=== PATIENT | male | born 1960 | race Caucasian/White ===

== ENCOUNTER 2017-11-29 17:26 | Emergency (ER) | payer OTHER ==
[~2017-11-29] VITALS: Ht 172.7 cm; Wt 93.4 kg
--- NOTE | 2017-11-29 17:55 | PHYS DOC ---
Past History Past Medical History: Diabetes, GERD Past Surgical History: No Surgical History Alcohol Use: None Drug Use: None Adult General Chief Complaint Chief Complaint: GI PROBLEM HPI HPI 57-year-old male presents with concern for food bolus in his esophagus. The patient normally is on omeprazole but he ran out and did not get it refilled for about one week. When he has not taken it in the past, he has had swelling of his esophagus has had fluid boluses stuck in the past. Yesterday, the patient was eating hamburger and began to have the feeling that maybe something got stuck. Today the patient was eating shrimp and he felt fairly certain that it was stuck. He drank some more diffuse and forced himself to vomit. He was able to dislodge and vomited out the shrimp that he ate. He continued to work rest of the day, but came here because he still has pain in his throat and feels like there may still be something stuck. He has had the initiation of glucagon and endoscopy to remove bolus in the past. He is still able to swallow liquids but has not tried any additional solids. Patient denies any other illness or concerns. Review of Systems Review of Systems Constitutional: Denies fever or chills [] Eyes: Denies change in visual acuity, redness, or eye pain [] HENT: Denies nasal congestion or sore throat [] Respiratory: Denies cough or shortness of breath [] Cardiovascular: No additional information not addressed in HPI [] GI: Possible food bolus in the esophagus[] : Denies dysuria or hematuria [] Musculoskeletal: Denies back pain or joint pain [] Integument: Denies rash or skin lesions [] Neurologic: Denies headache, focal weakness or sensory changes [] Endocrine: Denies polyuria or polydipsia [] All other systems were reviewed and found to be within normal limits, except as documented in this note. Current Medications Current Medications Current Medications Medications (Trade) Dose Ordered Sig/Krysta Start Time Stop Time Status Last Admin Dose Admin Glucagon (Glucagen Kit) 1 mg 1X ONCE 11/29/17 18:15 11/29/17 18:16 Allergies Allergies Allergies Coded Allergies Type Severity Reaction Last Updated Verified Sulfa (Sulfonamide Antibiotics) Allergy Severe HALLICUINATIONS 11/29/17 Yes Physical Exam Physical Exam Constitutional: Well developed, well nourished, no acute distress, non-toxic appearance. [] HENT: Normocephalic, atraumatic, bilateral external ears normal, oropharynx moist, no oral exudates, nose normal. [] Eyes: PERRLA, EOMI, conjunctiva normal, no discharge. [] Neck: Normal range of motion, no tenderness, supple, no stridor. [] Cardiovascular:Heart rate regular rhythm, no murmur [] Lungs & Thorax: Bilateral breath sounds clear to auscultation [] Abdomen: Bowel sounds normal, soft, no tenderness, no masses, no pulsatile masses. [] Skin: Warm, dry, no erythema, no rash. [] Back: No tenderness, no CVA tenderness. [] Extremities: No tenderness, no cyanosis, no clubbing, ROM intact, no edema. [] Neurologic: Alert and oriented X 3, normal motor function, normal sensory function, no focal deficits noted. [] Psychologic: Affect normal, judgement normal, mood normal. [] Current Patient Data Vital Signs Vital Signs Date Time Temp Pulse Resp B/P (MAP) Pulse Ox O2 Delivery O2 Flow Rate FiO2 11/29/17 17:26 98.6 65 20 97 Room Air Lab Results Laboratory Tests Test 11/29/17 17:45 White Blood Count 7.5 x10^3/uL Red Blood Count 4.52 x10^6/uL Hemoglobin 13.6 g/dL Hematocrit 38.6 % Mean Corpuscular Volume 85 fL Mean Corpuscular Hemoglobin 30 pg Mean Corpuscular Hemoglobin Concent 35 g/dL Red Cell Distribution Width 13.4 % Platelet Count 302 x10^3/uL Neutrophils (%) (Auto) 56 % Lymphocytes (%) (Auto) 34 % Monocytes (%) (Auto) 8 % Eosinophils (%) (Auto) 2 % Basophils (%) (Auto) 1 % Neutrophils # (Auto) 4.2 x10^3uL Lymphocytes # (Auto) 2.5 x10^3/uL Monocytes # (Auto) 0.6 x10^3/uL Eosinophils # (Auto) 0.1 x10^3/uL Basophils # (Auto) 0.1 x10^3/uL Sodium Level 139 mmol/L Potassium Level 3.8 mmol/L Chloride Level 101 mmol/L Carbon Dioxide Level 29 mmol/L Anion Gap 9 Blood Urea Nitrogen 27 mg/dL Creatinine 1.2 mg/dL Estimated GFR (Cockcroft-Gault) 62.4 Glucose Level 129 mg/dL Calcium Level 9.1 mg/dL Current Medications Medications (Trade) Dose Ordered Sig/Krysta Route PRN Reason Start Time Stop Time Status Last Admin Dose Admin Glucagon (Glucagen Kit) 1 mg 1X ONCE IV 11/29/17 18:15 11/29/17 18:17 DC 11/29/17 18:42 Midazolam HCl (Versed) 1 mg 1X ONCE IV 11/29/17 19:00 11/29/17 19:01 DC 11/29/17 18:42 EKG EKG Not performed[] Radiology/Procedures Radiology/[place] [address] IMAGING REPORT Signed PATIENT: CATINA FORD ACCOUNT: [id number] : 1960 LOCATION: ER AGE: 57 SEX: M EXAM STATUS: REG ER ORD. PHYSICIAN: ALONDRA HOUGH DO REASON: Suspected foreign body in esophagus PROCEDURE: CHEST PA & LATERAL Chest PA and lateral: Reason for examination: Choking episode. Acid reflux. Suspected foreign body in esophagus. The heart size is normal. Mediastinum is unremarkable. Lung green are clear except for small calcified granuloma in the periphery of the mid left lung field. No acute bony abnormalities are seen. Old rib fractures are seen on the right. There is no radiopaque foreign body identified. Impression: No acute cardiopulmonary disease. Soft tissues neck 2 views: The vertebral bodies of the cervical spine are normally aligned anteriorly and posteriorly. Prevertebral soft tissues are normal. The epiglottis has a normal appearance. The airways patent. No radiopaque foreign bodies are identified. IMPRESSION: No acute abnormality in the soft tissues of neck. No radiopaque foreign body identified. KUB: There is no gross organomegaly. Psoas muscles are symmetric. Bowel gas pattern is nonspecific with no evidence of obstruction. No radiopaque foreign bodies identified. There are small phleboliths in the pelvis. No acute bony abnormalities are seen. IMPRESSION: Nonobstructive bowel gas pattern. No radiopaque foreign bodies identified. Electronically signed by: Violet Whittaker MD (11/29/2017 6:37 PM) [facility] DICTATED AND SIGNED BY: VIOLET WHITTAKER MD DATE: 11/29/171833 CC: ALONDRA HOUGH DO; REY KRUEGER MD; KORIN DODSON MD ~ [address] [address] IMAGING REPORT Signed PATIENT: CATINA FORD ACCOUNT: [id number] : 1960 LOCATION: ER AGE: 57 SEX: M EXAM STATUS: REG ER ORD. PHYSICIAN: ALONDRA HOUGH DO REASON: Suspected foreign body in esophagus PROCEDURE: KUB Chest PA and lateral: Reason for examination: Choking episode. Acid reflux. Suspected foreign body in esophagus. The heart size is normal. Mediastinum is unremarkable. Lung green are clear except for small calcified granuloma in the periphery of the mid left lung field. No acute bony abnormalities are seen. Old rib fractures are seen on the right. There is no radiopaque foreign body identified. Impression: No acute cardiopulmonary disease. Soft tissues neck 2 views: The vertebral bodies of the cervical spine are normally aligned anteriorly and posteriorly. Prevertebral soft tissues are normal. The epiglottis has a normal appearance. The airways patent. No radiopaque foreign bodies are identified. IMPRESSION: No acute abnormality in the soft tissues of neck. No radiopaque foreign body identified. KUB: There is no gross organomegaly. Psoas muscles are symmetric. Bowel gas pattern is nonspecific with no evidence of obstruction. No radiopaque foreign bodies identified. There are small phleboliths in the pelvis. No acute bony abnormalities are seen. IMPRESSION: Nonobstructive bowel gas pattern. No radiopaque foreign bodies identified. Electronically signed by: Violet Whittaker MD (11/29/2017 6:37 PM) [facility] DICTATED AND SIGNED BY: VIOLET WHITTAKER MD DATE: 11/29/171833 CC: ALONDRA HOUGH DO; REY KRUEGER MD; KORIN DODSON MD ~ [address] [address] IMAGING REPORT Signed PATIENT: CATINA FORD ACCOUNT: [id number] : 1960 LOCATION: ER AGE: 57 SEX: M EXAM STATUS: REG ER ORD. PHYSICIAN: ALONDRA HOUGH DO REASON: Suspected foreign body in esophagus PROCEDURE: NECK SOFT TISSUE Chest PA and lateral: Reason for examination: Choking episode. Acid reflux. Suspected foreign body in esophagus. The heart size is normal. Mediastinum is unremarkable. Lung green are clear except for small calcified granuloma in the periphery of the mid left lung field. No acute bony abnormalities are seen. Old rib fractures are seen on the right. There is no radiopaque foreign body identified. Impression: No acute cardiopulmonary disease. Soft tissues neck 2 views: The vertebral bodies of the cervical spine are normally aligned anteriorly and posteriorly. Prevertebral soft tissues are normal. The epiglottis has a normal appearance. The airways patent. No radiopaque foreign bodies are identified. IMPRESSION: No acute abnormality in the soft tissues of neck. No radiopaque foreign body identified. KUB: There is no gross organomegaly. Psoas muscles are symmetric. Bowel gas pattern is nonspecific with no evidence of obstruction. No radiopaque foreign bodies identified. There are small phleboliths in the pelvis. No acute bony abnormalities are seen. IMPRESSION: Nonobstructive bowel gas pattern. No radiopaque foreign bodies identified. Electronically signed by: Violet Whittaker MD (11/29/2017 6:37 PM) [facility] DICTATED AND SIGNED BY: VIOLET WHITTAKER MD DATE: 11/29/17 1834 CC: ALONDRA HOUGH DO; REY KRUEGER MD; KORIN DODSON MD ~ [] Course & Med Decision Making Course & Med Decision Making Pertinent Labs and Imaging studies reviewed. (See chart for details) The patient's workup is pending. I am signing out the patient to Dr. Krueger Addendum at [address] Rey Krueger: I took over care of the patient has reported by Dr. Hough at 1800. Patient's x-rays were negative for acute pathology. The patient was administered glucagon and Versed. After administration of medication, the patient is able to tolerate oral fluids at this time. Patient additionally was given GI cocktail to help with throat irritation. The patient is a candidate for outpatient follow-up with gastroenterology and patient referred to Dr. Perlata. Advised to follow-up in the next 3 days for reevaluation. Advised return emergency Department for any worsening symptoms. Patient voiced understanding and agreement with treatment plan.[] Dragon Disclaimer Dragon Disclaimer This electronic medical record was generated, in whole or in part, using a voice recognition dictation system. Departure Departure: Impression: Primary Impression: Esophageal abnormality Disposition: HOME, SELF-CARE Condition: IMPROVED Referrals: KORIN DODSON MD (PCP) LILI PERALTA MD Patient Instructions: Swallowed Foreign Body, Adult Additional Instructions: He will need to follow-up with a final cigar and box examiner in the next 3 days for reevaluation. Continue with liquid diet and soft diet at this time until your symptoms have completely resolved. Carbonated beverages may be of benefit to help relieve any remaining partial blockage. As part of your treatment you may need to have endoscopy to determine if there is any remaining blockage in your esophagus. Return to the emergency department for any worsening symptoms. ALONDRA HOUGH DO Nov 29, 2017 17:55 REY KRUEGER MD Nov 29, 2017 19:22
[2017-11-29 18:05] LABS: BASO # 0.1 x10^3/uL (0.0-0.2); BASO % 1 % (0-3); EOS # 0.1 x10^3/uL (0.0-0.7); EOS % 2 % (0-3); HEMATOCRIT 38.6 % (39.0-53.0); HEMOGLOBIN 13.6 g/dL (13.0-17.5); LYMPH # 2.5 x10^3/uL (1.0-4.8); LYMPH % 34 % (24-48); MEAN CORPUSCULAR HEMOGLOBIN 30 pg (25-35); MEAN CORPUSCULAR HGB CONC 35 g/dL (31-37); MEAN CORPUSCULAR VOLUME 85 fL (79-100); MONO # 0.6 x10^3/uL (0.0-1.1); MONO % 8 % (0-9); NEUT # 4.2 x10^3uL (1.8-7.7); NEUT % 56 % (31-73); PLATELET COUNT 302 x10^3/uL (140-400); RED BLOOD COUNT 4.52 x10^6/uL (4.30-5.70); RED CELL DISTRIBUTION WIDTH 13.4 % (11.5-14.5); WHITE BLOOD COUNT 7.5 x10^3/uL (4.0-11.0)
[2017-11-29 18:10] LABS: CALCIUM 9.1 mg/dL (8.5-10.1); CREATININE 1.2 mg/dL (0.7-1.3); GFR 62.4; POTASSIUM 3.8 mmol/L (3.5-5.1)
--- NOTE | 2017-11-29 18:41 | RAD ---
Chest PA and lateral: Reason for examination: Choking episode. Acid reflux. Suspected foreign body in esophagus. The heart size is normal. Mediastinum is unremarkable. Lung green are clear except for small calcified granuloma in the periphery of the mid left lung field. No acute bony abnormalities are seen. Old rib fractures are seen on the right. There is no radiopaque foreign body identified. Impression: No acute cardiopulmonary disease. Soft tissues neck 2 views: The vertebral bodies of the cervical spine are normally aligned anteriorly and posteriorly. Prevertebral soft tissues are normal. The epiglottis has a normal appearance. The airways patent. No radiopaque foreign bodies are identified. IMPRESSION: No acute abnormality in the soft tissues of neck. No radiopaque foreign body identified. KUB: There is no gross organomegaly. Psoas muscles are symmetric. Bowel gas pattern is nonspecific with no evidence of obstruction. No radiopaque foreign bodies identified. There are small phleboliths in the pelvis. No acute bony abnormalities are seen. IMPRESSION: Nonobstructive bowel gas pattern. No radiopaque foreign bodies identified. Electronically signed by: Violet Kauffman MD (11/29/2017 6:37 PM) [facility]
[2017-11-29] MEDS: MIDAZOLAM HCL PF 5 MG/5 ML VIAL. IV ONE (18:42)
[2017-11-29] MEDS: GLUCAGON,HUMAN RECOMBINANT 1 MG KIT. IV ONE (18:42)
[2017-11-29 19:20] VITALS: BP 148/73
[2017-11-29] MEDS: LIDO:MAALOX 1:1 20 ML SINGLE DOSE. PO ONE (19:28)
== END 2017-11-29 19:25 | disposition home or self-care (01) ==
LOC: ER 17:26
DX: K22.8 Other specified diseases of esophagus (principal); K21.9 Gastro-esophageal reflux disease without esophagitis; E11.9 Type 2 diabetes mellitus without complications; Z88.2 Allergy status to sulfonamides
CPT/HCPCS: 36415; 70360; 71046; 74018; 80048; 85025; 96374; 96375; 99285; J1610; J2250

== ENCOUNTER 2017-12-19 05:24 | Emergency (ER) | payer OTHER ==
[~2017-12-19] VITALS: Ht 172.7 cm; Wt 93.5 kg
--- NOTE | 2017-12-19 05:39 | ED.ADGEN ---
Past History Past Medical History: Diabetes, GERD Past Surgical History: No Surgical History Alcohol Use: None Drug Use: None Adult General Chief Complaint Chief Complaint ".. I having one of my migraines.. .. when they get bad... I just get a shot of toradol .. and I get better... I had all kinds of CT.. and labs.. they have never found anything..." [facility] HPI Patient is a 57 year old male who presents with complaints of head ache. He says this feels like his typical migraine. Patient does have photophobia. No visual field deficits. Patient denies any trauma. Patient denies any travel. Patient denies any specific ill contacts. Patient states she's had multiple workups for his migraines and they have always been negative for specific pathology. Patient's iron carrier are equal. DTRs +2 patella and brachial. Distal vibratory 128 intact. Air-conduction more than bone conduction and no lateralization. Patient requesting clinical development of his migraine. Toradol shot. Patient states she's had a headache for 2 days. But on driving to work today he decided not to work and presented himself to the emergency department. Patient is examined for problems. Patient denies any history of fevers, cancer or immunosuppression. Patient normally follows with Dr. Aguillon. Review of Systems Review of Systems Constitutional: Denies fever or chills [] Eyes: Denies change in visual acuity, redness, or eye pain [] HENT: Denies nasal congestion or sore throat [] Respiratory: Denies cough or shortness of breath [] Cardiovascular: No additional information not addressed in HPI [] GI: Denies abdominal pain, nausea, vomiting, bloody stools or diarrhea [] : Denies dysuria or hematuria [] Musculoskeletal: Denies back pain or joint pain [] Integument: Denies rash or skin lesions [] Neurologic: Complains of headache. Denies focal weakness or sensory changes [] Endocrine: Denies polyuria or polydipsia [] All other systems were reviewed and found to be within normal limits, except as documented in this note. Family History Family History Non-contributory Current Medications Current Medications Current Medications Medications (Trade) Dose Ordered Sig/Krysta Start Time Stop Time Status Last Admin Dose Admin Ketorolac Tromethamine (Toradol) 60 mg STK-MED ONCE 12/19/17 05:42 12/19/17 05:43 DC Ondansetron HCl (Zofran Odt) 8 mg 1X ONCE 12/19/17 06:00 12/19/17 06:01 DC 12/19/17 05:48 8 MG Allergies Allergies Allergies Coded Allergies Type Severity Reaction Last Updated Verified Sulfa (Sulfonamide Antibiotics) Allergy Severe HALLICUINATIONS 11/29/17 Yes Physical Exam Physical Exam Constitutional: Well developed, well nourished, mild distress, non-toxic appearance. [] HENT: Normocephalic, atraumatic, bilateral external ears normal, oropharynx moist, no oral exudates, nose normal. [] Eyes: PERRLA, EOMI, conjunctiva normal, no discharge. [] Photophobia Neck: Normal range of motion, no tenderness, supple, no stridor. [] Cardiovascular:Heart rate regular rhythm, no murmur [] Lungs & Thorax: Bilateral breath sounds clear to auscultation [] Abdomen: Bowel sounds normal, soft, no tenderness, no masses, no pulsatile masses. [] Skin: Warm, dry, no erythema, no rash. [] Back: No tenderness, no CVA tenderness. [] Extremities: No tenderness, no cyanosis, no clubbing, ROM intact, no edema. [] Neurologic: Alert and oriented X 3, normal motor function, normal sensory function, no focal deficits noted. []Exam as per history of present illness Psychologic: Affect normal, judgement normal, mood normal. [] EKG EKG [] Radiology/Procedures Radiology/Procedures Declines CT[] Course & Med Decision Making Course & Med Decision Making Pertinent Labs and Imaging studies reviewed. (See chart for details). Pt. declines Spinal tap or labs. Patient take home meds. Directed for his migraines. Patient follow-up primary care review his blood pressure. Patient return if any concerns. [] Final Impression Final Impression 1. Headache- Migraine[] Dragon Disclaimer Dragon Disclaimer This electronic medical record was generated, in whole or in part, using a voice recognition dictation system. DANYA ACUÑA MD Dec 19, 2017 05:39
[2017-12-19] MEDS ORDERED: KETOROLAC 60 MG/2 ML VIAL. IM ONE ×2 (05:42→06:00)
[2017-12-19 05:50] VITALS: BP 150/78
[2017-12-19] MEDS ORDERED: ONDANSETRON ODT 4 MG TAB.RAPDIS PO ONE (06:00)
== END 2017-12-19 06:00 | disposition home or self-care (01) ==
LOC: ER 05:24
DX: G43.909 Migraine, unspecified, not intractable, without status migrainosus (principal); K21.9 Gastro-esophageal reflux disease without esophagitis; E11.9 Type 2 diabetes mellitus without complications; Z88.2 Allergy status to sulfonamides
CPT/HCPCS: 96372; 99283; J1885; Q0162

== ENCOUNTER 2018-03-14 06:16 | Emergency (ER) | payer OTHER ==
[~2018-03-14] VITALS: Ht 172.7 cm; Wt 96.0 kg
[2018-03-14 06:28] VITALS: BP 173/88
[2018-03-14] MEDS ORDERED: ALBUTEROL SULFATE 2.5 MG/3 ML NEBU. ONE (06:42)
--- NOTE | 2018-03-14 06:48 | PHYS DOC ---
Past History Past Medical History: Asthma, High Cholesterol, Hypertension Past Surgical History: No Surgical History, Other Alcohol Use: None Drug Use: None Adult General Chief Complaint Chief Complaint: SHORTNESS OF BREATH HPI HPI 57-year-old male presents with shortness of breath and migraine headache. The patient has known asthma. He woke up this morning and felt like he was more short of breath. He thought he might be wheezing. He took his MDI inhaler but this did not seem to improve his breathing as he usually does. The patient typically has asthma exacerbations with weather changes and it is worse this time of year as he has seasonal allergies. He denies chest pain or diaphoresis. He has not had a cough or fever. 3 weeks ago he had an exacerbation and had a round of prednisone. This improved his condition substantially and he has been feeling well until this morning. Patient further complains of a migraine headache. He states that they sometimes occur with his asthma exacerbations. He is photophobic. The headache feels similar to his previous. He denies any trauma or falls. Review of Systems Review of Systems Constitutional: Denies fever or chills [] Eyes: Denies change in visual acuity, redness, or eye pain [] HENT: Denies nasal congestion or sore throat [] Respiratory: shortness of breath [] Cardiovascular: No additional information not addressed in HPI [] GI: Denies abdominal pain, nausea, vomiting, bloody stools or diarrhea [] : Denies dysuria or hematuria [] Musculoskeletal: Denies back pain or joint pain [] Integument: Denies rash or skin lesions [] Neurologic: Headache. No focal weakness or sensory changes [] Endocrine: Denies polyuria or polydipsia [] All other systems were reviewed and found to be within normal limits, except as documented in this note. Current Medications Current Medications Current Medications Medications (Trade) Dose Ordered Sig/Krysta Start Time Stop Time Status Last Admin Dose Admin Albuterol Sulfate (Ventolin) 2.5 mg STK-MED ONCE 03/14/18 06:42 03/14/18 06:43 DC Allergies Allergies Allergies Coded Allergies Type Severity Reaction Last Updated Verified Sulfa (Sulfonamide Antibiotics) Allergy Severe HALLICUINATIONS 11/29/17 Yes Physical Exam Physical Exam Constitutional: Well developed, well nourished, no acute distress, non-toxic appearance. [] HENT: Normocephalic, atraumatic, bilateral external ears normal, oropharynx moist, no oral exudates, nose normal. [] Eyes: PERRLA, EOMI, conjunctiva normal, no discharge. Photophobia[] Neck: Normal range of motion, no tenderness, supple, no stridor. [] Cardiovascular:Heart rate regular rhythm, no murmur [] Lungs & Thorax: Bilateral breath sounds mildly decreased with bilateral wheezing at the bases[] Abdomen: Bowel sounds normal, soft, no tenderness, no masses, no pulsatile masses. [] Skin: Warm, dry, no erythema, no rash. [] Back: No tenderness, no CVA tenderness. [] Extremities: No tenderness, no cyanosis, no clubbing, ROM intact, no edema. [] Neurologic: Alert and oriented X 3, normal motor function, normal sensory function, no focal deficits noted. [] Psychologic: Affect normal, judgement normal, mood normal. [] Current Patient Data Vital Signs Vital Signs Date Time Temp Pulse Resp B/P (MAP) Pulse Ox O2 Delivery O2 Flow Rate FiO2 03/14/18 06:28 Room Air 03/14/18 06:28 98.2 73 22 97 EKG EKG [] Radiology/Procedures Radiology/Procedures [] Course & Med Decision Making Course & Med Decision Making Pertinent Labs and Imaging studies reviewed. (See chart for details) The patient was given 2 albuterol nebulizers and a DuoNeb. He had improved breath sounds, but bilateral wheezing remained. I gave him 125 of Solu-Medrol and will discharge him with 3 days of prednisone 50 mg. For his headache, patient was given 1 L normal saline, 30 mg of Toradol, 25 mg Benadryl, 10 mg Reglan. He had significant improvement in his headache. He feels as though he can go home. He is stable for discharge at this time. [] Dragon Disclaimer Dragon Disclaimer This electronic medical record was generated, in whole or in part, using a voice recognition dictation system. Departure Departure: Referrals: KORIN DODSON MD (PCP) Scripts Prednisone (PREDNISONE) 50 Mg Tablet 1 TAB PO DAILY for 3 Days, #3 TAB Prov: ALONDRA HOUGH DO 03/14/18 ALONDRA HOUGH DO Mar 14, 2018 06:48
[2018-03-14] MEDS ORDERED: IV NORMAL SALINE 1,000ML 1,000 ML IV ONE (07:00)
[2018-03-14] MEDS ORDERED: METOCLOPRAMIDE HCL 10 MG/2 ML VIAL. IV ONE (07:00)
[2018-03-14] MEDS ORDERED: KETOROLAC 30 MG/ML VIAL. IV ONE (07:00)
[2018-03-14] MEDS ORDERED: diphenhydrAMINE 50 MG/ML VIAL IVP ONE (07:00)
[2018-03-14] MEDS ORDERED: IPRATRPIUM/ALBUTEROL 0.5/2.5MG 3 ML NEBU. ONE (07:12)
[2018-03-14] MEDS ORDERED: ALBUTEROL SULFATE 2.5 MG/3 ML NEBU. NEB ONE (07:15)
[2018-03-14] MEDS ORDERED: IPRATRPIUM/ALBUTEROL 0.5/2.5MG 3 ML NEBU. NEB ONE (07:15)
[2018-03-14 07:19] LABS: BASO # 0.1 x10^3/uL (0.0-0.2); BASO % 1 % (0-3); EOS # 0.2 x10^3/uL (0.0-0.7); EOS % 2 % (0-3); HEMATOCRIT 38.3 % (39.0-53.0); HEMOGLOBIN 13.3 g/dL (13.0-17.5); LYMPH # 2.5 x10^3/uL (1.0-4.8); LYMPH % 35 % (24-48); MEAN CORPUSCULAR HEMOGLOBIN 30 pg (25-35); MEAN CORPUSCULAR HGB CONC 35 g/dL (31-37); MEAN CORPUSCULAR VOLUME 87 fL (79-100); MONO # 0.7 x10^3/uL (0.0-1.1); MONO % 10 % (0-9); NEUT # 3.7 x10^3uL (1.8-7.7); NEUT % 52 % (31-73); PLATELET COUNT 257 x10^3/uL (140-400); RED BLOOD COUNT 4.41 x10^6/uL (4.30-5.70); RED CELL DISTRIBUTION WIDTH 14.1 % (11.5-14.5); WHITE BLOOD COUNT 7.1 x10^3/uL (4.0-11.0)
[2018-03-14] MEDS ORDERED: methylPREDNISolone SOD SUCC PF 125 MG/2 ML VIAL. IV ONE (07:30)
[2018-03-14 07:32] LABS: ALBUMIN 3.9 g/dL (3.4-5.0); ALBUMIN/GLOBULIN RATIO 1.8 (1.0-1.7); CALCIUM 8.6 mg/dL (8.5-10.1); CREATININE 1.2 mg/dL (0.7-1.3); GFR 62.4; POTASSIUM 3.7 mmol/L (3.5-5.1); TOTAL BILIRUBIN 0.9 mg/dL (0.2-1.0); TOTAL PROTEIN 6.1 g/dL (6.4-8.2)
[2018-03-14] MEDS ORDERED: PRED50TA PO (08:37)
== END 2018-03-14 08:45 | disposition home or self-care (01) ==
LOC: ER 06:16
DX: G43.909 Migraine, unspecified, not intractable, without status migrainosus (principal); R06.02 Shortness of breath; J45.909 Unspecified asthma, uncomplicated; E78.00 Pure hypercholesterolemia, unspecified; I10 Essential (primary) hypertension; Z88.2 Allergy status to sulfonamides
CPT/HCPCS: 36415; 80053; 85025; 94640; 96374; 96375; 99284; J1200; J1885; J2765; J2930; J7613; J7620; J7030

== ENCOUNTER 2018-04-14 14:57 | Emergency (ER) | payer OTHER ==
[~2018-04-14] VITALS: Ht 172.7 cm; Wt 94.2 kg
[~2018-04-14 14:57] MED LIST: PRED50TA PO
[2018-04-14] MEDS ORDERED: ONDANSETRON ODT 4 MG TAB.RAPDIS PO ONE (15:45)
[2018-04-14] MEDS ORDERED: KETOROLAC 60 MG/2 ML VIAL. IM ONE (15:45)
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
[2018-04-14 16:13] VITALS: BP 135/86
== END 2018-04-14 16:13 | disposition home or self-care (01) ==
LOC: ER 14:57
DX: G43.909 Migraine, unspecified, not intractable, without status migrainosus (principal); R11.0 Nausea; J45.909 Unspecified asthma, uncomplicated; E78.00 Pure hypercholesterolemia, unspecified; I10 Essential (primary) hypertension; Z88.2 Allergy status to sulfonamides
CPT/HCPCS: 96372; 99283; J1885; Q0162

== ENCOUNTER 2019-10-20 11:43 | Emergency (ER) | payer SELFPAY ==
[~2019-10-20] VITALS: Ht 172.7 cm; Wt 98.1 kg
[2019-10-20 11:43] VITALS: BP 148/83
--- NOTE | 2019-10-20 12:29 | RAD ---
Study: CR CHEST AP ONLY Indication: Shortness of breath. Comparison: 11/29/2017. Findings: Within normal limits cardiomediastinal silhouette. Unchanged configuration of the ojssie noting differences in patient positioning. No lobar consolidation, large effusion or pneumothorax. Several remote rib fractures seen on the right as well as scattered granulomas. Impression: No acute radiographic abnormality of the chest. No significant change from the 11/29/2017 comparison. Electronically signed by: BERNARDO MELENDEZ MD (10/20/2019 12:26 PM) [id number]
[2019-10-20 12:31] LABS: BASO # 0.1 x10^3/uL (0.0-0.2); BASO % 1 % (0-3); EOS # 0.1 x10^3/uL (0.0-0.7); EOS % 1 % (0-3); HEMATOCRIT 39.9 % (39.0-53.0); HEMOGLOBIN 13.5 g/dL (13.0-17.5); LYMPH # 1.7 x10^3/uL (1.0-4.8); LYMPH % 26 % (24-48); MEAN CORPUSCULAR HEMOGLOBIN 29 pg (25-35); MEAN CORPUSCULAR HGB CONC 34 g/dL (31-37); MEAN CORPUSCULAR VOLUME 87 fL (79-100); MONO # 0.5 x10^3/uL (0.0-1.1); MONO % 8 % (0-9); NEUT # 4.2 x10^3uL (1.8-7.7); NEUT % 64 % (31-73); PLATELET COUNT 237 x10^3/uL (140-400); RED BLOOD COUNT 4.61 x10^6/uL (4.30-5.70); RED CELL DISTRIBUTION WIDTH 14.1 % (11.5-14.5); WHITE BLOOD COUNT 6.5 x10^3/uL (4.0-11.0)
--- NOTE | 2019-10-20 12:32 | EKG ---
[address] [address] Test Date: 2019-10-20 Test Time: 12:05:49 Pat Name: CATINA FORD Department: Room: Gender: M Instructional Design Consultant: : [id number] Requested By: ALONDRA HOUGH Order Number: [id number] Reading MD: Clifford Tang Measurements Intervals [place] Rate: 64 P: -51 CT: 188 QRS: 2 QRSD: 82 T: 37 QT: 372 QTc: 388 Interpretive Statements SINUS RHYTHM QRS(T) CONTOUR ABNORMALITY CONSIDER INFERIOR MYOCARDIAL DAMAGE Electronically Signed On 10-21-2019 8:21:03 CDT by Clifford Tang
[2019-10-20 12:39] LABS: CALCIUM 8.4 mg/dL (8.5-10.1); CREATININE 1.2 mg/dL (0.7-1.3); POTASSIUM 3.8 mmol/L (3.5-5.1)
[2019-10-20 12:44] LABS: ALBUMIN 3.6 g/dL (3.4-5.0); ALBUMIN/GLOBULIN RATIO 1.2 (1.0-1.7); TOTAL BILIRUBIN 0.3 mg/dL (0.2-1.0); TOTAL PROTEIN 6.6 g/dL (6.4-8.2)
--- NOTE | 2019-10-20 12:48 | PHYS DOC ---
Past History Past Medical History: Asthma, COPD, GERD, High Cholesterol, Hypertension, Migraines Past Surgical History: No Surgical History, Knee Replacement Alcohol Use: None Drug Use: None General Adult EDM: Chief Complaint: SHORTNESS OF BREATH HPI: HPI: 59-year-old male presents with shortness of breath and cough. Patient gets bronchitis every year. He believes this is what it has. His shortness of breath has been about 2 days. He has mild intermittent asthma at baseline and seasonal allergies. He denies any direct exposure to coronavirus patients. He does go to a job every day. No one at his place of employment is tested positive. His shortness of breath is mild. His cough is similar to previous. He denies fever chills. Review of Systems: Review of Systems: Constitutional: Denies fever or chills Eyes: Denies change in visual acuity HENT: Denies nasal congestion or sore throat Respiratory: Denies cough or shortness of breath Cardiovascular: Denies chest pain or edema GI: Denies abdominal pain, nausea, vomiting, bloody stools or diarrhea : Denies dysuria Musculoskeletal: Denies back pain or joint pain Integument: Denies rash Neurologic: Denies headache, focal weakness or sensory changes Endocrine: Denies polyuria or polydipsia Lymphatic: Denies swollen glands Psychiatric: Denies depression or anxiety Heart Score: Risk Factors: Risk Factors: DM, Current or recent (<one month) smoker, HTN, HLP, family history of CAD, obesity. Risk Scores: Score 0 - 3: 2.5% MACE over next 6 weeks - Discharge Home Score 4 - 6: 20.3% MACE over next 6 weeks - Admit for Clinical Observation Score 7 - 10: 72.7% MACE over next 6 weeks - Early Invasive Strategies Allergies: Allergies: Allergies Coded Allergies Type Severity Reaction Last Updated Verified Sulfa (Sulfonamide Antibiotics) Allergy Severe HALLICUINATIONS 11/29/17 Yes Physical Exam: PE: Constitutional: Well developed, well nourished, no acute distress, non-toxic appearance. [] HENT: Normocephalic, atraumatic, bilateral external ears normal, oropharynx moist, no oral exudates, nose normal. [] Eyes: PERRLA, EOMI, conjunctiva normal, no discharge. [] Neck: Normal range of motion, no tenderness, supple, no stridor. [] Cardiovascular:Heart rate regular rhythm, no murmur [] Lungs & Thorax: Bilateral breath sounds clear to auscultation [] Abdomen: Bowel sounds normal, soft, no tenderness, no masses, no pulsatile masses. [] Skin: Warm, dry, no erythema, no rash. [] Back: No tenderness, no CVA tenderness. [] Extremities: No tenderness, no cyanosis, no clubbing, ROM intact, no edema. [] Neurologic: Alert and oriented X 3, normal motor function, normal sensory function, no focal deficits noted. [] Psychologic: Affect normal, judgement normal, mood normal. [] Current Patient Data: Labs: Laboratory Tests Test 10/20/19 12:17 White Blood Count 6.5 x10^3/uL (4.0-11.0) Red Blood Count 4.61 x10^6/uL (4.30-5.70) Hemoglobin 13.5 g/dL (13.0-17.5) Hematocrit 39.9 % (39.0-53.0) Mean Corpuscular Volume 87 fL (79-100) Mean Corpuscular Hemoglobin 29 pg (25-35) Mean Corpuscular Hemoglobin Concent 34 g/dL (31-37) Red Cell Distribution Width 14.1 % (11.5-14.5) Platelet Count 237 x10^3/uL (140-400) Neutrophils (%) (Auto) 64 % (31-73) Lymphocytes (%) (Auto) 26 % (24-48) Monocytes (%) (Auto) 8 % (0-9) Eosinophils (%) (Auto) 1 % (0-3) Basophils (%) (Auto) 1 % (0-3) Neutrophils # (Auto) 4.2 x10^3uL (1.8-7.7) Lymphocytes # (Auto) 1.7 x10^3/uL (1.0-4.8) Monocytes # (Auto) 0.5 x10^3/uL (0.0-1.1) Eosinophils # (Auto) 0.1 x10^3/uL (0.0-0.7) Basophils # (Auto) 0.1 x10^3/uL (0.0-0.2) Sodium Level 136 mmol/L (136-145) Potassium Level 3.8 mmol/L (3.5-5.1) Chloride Level 103 mmol/L (98-107) Carbon Dioxide Level 23 mmol/L (21-32) Anion Gap 10 (6-14) Blood Urea Nitrogen 11 mg/dL (8-26) Creatinine 1.2 mg/dL (0.7-1.3) Estimated GFR (Cockcroft-Gault) 62.0 BUN/Creatinine Ratio 9 (6-20) Glucose Level 239 mg/dL (70-99) H Calcium Level 8.4 mg/dL (8.5-10.1) L Total Bilirubin 0.3 mg/dL (0.2-1.0) Aspartate Amino Transferase (AST) 25 U/L (15-37) Alanine Aminotransferase (ALT) 46 U/L (16-63) Alkaline Phosphatase 113 U/L (46-116) Troponin I Quantitative < 0.017 ng/mL (0-0.055) Total Protein 6.6 g/dL (6.4-8.2) Albumin 3.6 g/dL (3.4-5.0) Albumin/Globulin Ratio 1.2 (1.0-1.7) Vital Signs: Vital Signs Date Time Temp Pulse Resp B/P (MAP) Pulse Ox O2 Delivery O2 Flow Rate FiO2 10/20/19 11:43 98.0 75 20 148/83 (104) 97 Room Air EKG: EKG: Sinus rhythm, rate 64, normal axis, no ST elevations or depressions. [] Radiology/Procedures: Radiology/Procedures: [] Impressions: Study: CR CHEST AP ONLY Indication: Shortness of breath. Comparison: 11/29/2017. Findings: Within normal limits cardiomediastinal silhouette. Unchanged configuration of the jossie noting differences in patient positioning. No lobar consolidation, large effusion or pneumothorax. Several remote rib fractures seen on the right as well as scattered granulomas. Impression: No acute radiographic abnormality of the chest. No significant change from the 11/29/2017 comparison. Electronically signed by: BERNARDO MELENDEZ MD (10/20/2019 12:26 PM) [id number] DICTATED AND SIGNED BY: BERNARDO MELENDEZ MD DATE: 10/20/19 1226 CC: ALONDRA HOUGH DO; KORIN DODSON MD ~ Course & Med Decision Making: Course & Med Decision Making Pertinent Labs and Imaging studies reviewed. (See chart for details) His labs are unremarkable. His oxygen saturation is 96 to 97% at rest. He has no fever. The patient's exam is not definitive of coronavirus, but I cannot rule it out. I have advised that the patient stay home the next few days and not return to work until Thursday. I will try 5 days of prednisone which is his usual treatment for bronchitis. If he is not feeling better, I have recommended that he stay quarantined at home. He is stable for discharge at this time. [] Dragon Disclaimer: Dragon Disclaimer: This electronic medical record was generated, in whole or in part, using a voice recognition dictation system. Departure Departure: Impression: Primary Impression: Viral bronchitis Disposition: HOME, SELF-CARE Condition: STABLE Referrals: KORIN DODSON MD (PCP) Patient Instructions: Acute Bronchitis, [id number] Scripts Prednisone (PREDNISONE) 50 Mg Tablet 1 TAB PO DAILY for bronchitis, #5 TAB Prov: ALONDRA HOUGH DO 10/20/19 ALONDRA HOUGH DO Oct 20, 2019 12:48
[2019-10-20] MEDS ORDERED: PRED50TA PO (13:21)
== END 2019-10-20 13:30 | disposition home or self-care (01) ==
LOC: ER 11:43
DX: J20.8 Acute bronchitis due to other specified organisms (principal); J44.9 Chronic obstructive pulmonary disease, unspecified; E78.00 Pure hypercholesterolemia, unspecified; I10 Essential (primary) hypertension; G43.909 Migraine, unspecified, not intractable, without status migrainosus; Z88.2 Allergy status to sulfonamides
CPT/HCPCS: 36415; 71045; 80053; 84484; 85025; 93005; 99285